=== PATIENT | male | born 1990 | race Hispanic/Latino ===

== ENCOUNTER 2017-12-05 21:54 | Emergency (ER) | payer BC ==
[2017-12-05 22:05] VITALS: BP 133/82; PULSE 63; RESP 18; TEMP 98.2; O2SAT 99
[2017-12-05] MEDS ORDERED: Absorbable Gelatin Sponge Size 12-7 ONE (22:14)
--- NOTE | 2017-12-05 22:18 | ED PDOC ---
HPI: General Adult Chief Complaint (Provider): left hand laceration History Per: Patient Additional Complaint(s): 27-year-old [id number] male presents with laceration to left fourth digit sustained about 1 hour prior to arrival when patient accidentally cut finger with a knife while cooking. Patient tried to apply svda-xor-holrhpr powder to reduce bleeding but this did not help. Patient is unsure of last tetanus. PMD: none <Sybil Bates - Last Filed: 12/05/17 22:58> <Eloise Crews - Last Filed: 12/06/17 00:10> Time Seen by Provider: 12/05/17 22:16 Chief Complaint (Nursing): Abnormal Skin Integrity Supervising Attending Note - Attestation: I have personally seen and examined this patient.: No I have reviewed all pertinent clinical information, including history, physical exam and plan: Yes <Eloise Crews - Last Filed: 12/06/17 00:10> Past Medical History Reviewed: Historical Data, Nursing Documentation, Vital Signs Vital Signs: Last Vital Signs Temp 98.2 F 12/05/17 22:03 Pulse 63 12/05/17 22:03 Resp 18 12/05/17 22:03 BP 133/82 12/05/17 22:03 Pulse Ox 99 12/05/17 22:03 - Medical History PMH: No Chronic Diseases - Surgical History Other surgeries: jaw surgery - Family History Family History: States: No Known Family Hx - Living Arrangements Living Arrangements: With Family - Social History Current smoker - smoking cessation education provided: No Alcohol: Social Drugs: Cannabis <Sybil Bates - Last Filed: 12/05/17 22:58> Vital Signs: Last Vital Signs Temp 98.2 F 12/05/17 22:03 Pulse 63 12/05/17 22:03 Resp 18 12/05/17 22:03 BP 133/82 12/05/17 22:03 Pulse Ox 99 12/05/17 23:08 <Eloise Crews - Last Filed: 12/06/17 00:10> - Allergies Allergies/Adverse Reactions: Allergies Allergy/AdvReac Type Severity Reaction Status Date / Time No Known Allergies Allergy Verified 12/05/17 22:05 Review of Systems ROS Statement: Except As Marked, All Systems Reviewed And Found Negative Musculoskeletal: Positive for: Other (left 4th digit laceration) <Sybil Bates - Last Filed: 12/05/17 22:58> Physical Exam - Reviewed Nursing Documentation Reviewed: Yes Vital Signs Reviewed: Yes - Physical Exam Appears: Positive for: Well, Non-toxic, No Acute Distress Skin: Positive for: Normal Color. Negative for: Rash Eye Exam: Positive for: Normal appearance Neck: Positive for: Normal Extremity: Positive for: Other (1 cm flap laceration noted to distal aspect of left fourth digit with moderate active bleeding, neurovascular intact, full rom of affected digit) Neurologic/Psych: Positive for: Alert, Oriented <Syibl Bates - Last Filed: 12/05/17 22:58> - ECG O2 Sat by Pulse Oximetry: 99 Pulse Ox Interpretation: Normal <Sybil Bates - Last Filed: 12/05/17 22:58> Medical Decision Making Medical Decision Makin27 y/o with left 4th digit laceration Plan: Lac repair Tetanus booster See procedure note, patient given wound care instructions. <Sybil Bates - Last Filed: 12/05/17 22:58> Procedures - Laceration/Wound Repair left 4th digit Wound Length (cm): 1 Wound's Depth, Shape: superficial, flap Wound Explored: clean Betadine Prep?: Yes Anesthesia: 1% Lidocaine Volume Anesthetic (ccs): 3 Wound Debrided: minimal Wound Repaired With: Sutures Suture Size/Type: 5:0, nylon Number of Sutures: 2 (simple interrupted) Layer Closure?: Yes Wound Complexity: Simple Sterile Dressing Applied?: Yes Progress: Patient tolerated procedure well with no complications. <Sybil Bates - Last Filed: 12/05/17 22:58> Disposition - Patient ED Disposition Is Patient to be Admitted: No Counseled Patient/Family Regarding: Diagnosis, Need For Followup - Disposition Disposition: Routine/Home Disposition Time: 22:59 <Sybil Bates - Last Filed: 12/05/17 22:58> <Eloise Crews - Last Filed: 12/06/17 00:10> - Clinical Impression Clinical Impression: Finger laceration, Requires a booster tetanus - Disposition [facility]errals: [facility] [Outside] Condition: STABLE Additional Instructions: Keep wound clean and dry. Apply bacitracin once per day. Ibuprofen for pain as needed. Suture removal 10-14 days. Instructions: Laceration Repair With Stitches (DC), Diphtheria and Tetanus Toxoids, and Acellular Pertussis Vaccine Forms: [employer] ([place])
[2017-12-05] MEDS ORDERED: Tdap Vaccine 0.5 ml Vial (10-64 yrs) IM ONE ×2 (22:21→22:32)
== END 2017-12-05 23:02 | disposition home or self-care (01) ==
LOC: H.ER 21:54
DX: S61.205A Unspecified open wound of left ring finger without damage to nail, initial encounter (principal); W26.0XXA Contact with knife, initial encounter; Y92.89 Other specified places as the place of occurrence of the external cause